=== PATIENT | male | born 1975 | race Caucasian/White ===

== ENCOUNTER 2018-06-08 07:19 | Inpatient (IN) | payer MEDICAID ==
[~2018-06-08] VITALS: Ht 180.3 cm; Wt 60.8 kg
[2018-06-08] MEDS ORDERED: BENA5TAB3 PO (07:23)
[2018-06-08] MEDS ORDERED: [UNRECOGNIZED DRUG - OTHER] (07:23)
[2018-06-08] MEDS ORDERED: INSULIN (07:23)
[2018-06-08] MEDS ORDERED: HYDR12.529 PO (07:23)
[2018-06-08] MEDS ORDERED: SODIUM CHLORIDE 0.9% 1,000 ML IV ONE (07:37)
[2018-06-08] MEDS ORDERED: FAMOTIDINE 20MG/2ML VIAL IV STA (07:37)
[2018-06-08] MEDS ORDERED: MORPHINE SULFATE 4 MG/ML CPJ (NOT FOR IM USE) IV STA (07:37)
[2018-06-08] MEDS ORDERED: ONDANSETRON HCL 4MG/2ML VIAL IV STA (07:37)
[2018-06-08 08:12] LABS: CHLORIDE 96 mEq/L (98-107)
[2018-06-08 08:14] LABS: INR 1.1; PROTHROMBIN TIME 11.5 sec (9.4-11.6)
[2018-06-08 08:15] LABS: HEMATOCRIT. 38.9 % (42.0-52.0); HEMOGLOBIN. 13.2 g/dL (14.0-18.0); MEAN CORPUSCULAR HEMOGLOBIN 28.7 pg (28.0-32.0); MEAN CORPUSCULAR VOLUME 84.9 fL (80.0-94.0); PLATELET 407 x1000/uL (130-400); RED BLOOD CELL COUNT 4.59 mill/uL (4.7-6.1); RED CELL DISTRIBUTION WIDTH 13.4 % (11.6-14.6)
[2018-06-08 09:16] LABS: PLATELET ESTIMATE SLIGHTLY INCREASED
[2018-06-08 10:20] LABS: CLARITY URINE CLEAR (CLEAR); COLOR URINE YELLOW (YELLOW); KETONES URINE TRACE (NEGATIVE); LEUKOCYTE ESTERASE URINE NEGATIVE (NEGATIVE); NITRITE URINE NEGATIVE (NEGATIVE); OCCULT BLOOD URINE NEGATIVE (NEGATIVE); PROTEIN URINE 1+ (NEGATIVE); SPECIFIC GRAVITY URINE 1.053 (1.005-1.030)
[2018-06-08] MEDS ORDERED: METRONIDAZOLE 500 MG PREMIX 100 ML IV ONE (10:30)
[2018-06-08] MEDS ORDERED: PIPERACILLIN/TAZ 3.375G PREMIX 50 ML IV ONE (10:30)
[2018-06-08] MEDS ORDERED: IOHEXOL-300 100 ML BOTTLE ONE (10:39)
[2018-06-08] MEDS ORDERED: NA PHOS,M-B/NA PHOS,DI-BA ENEMA 118ML PR PRN (11:45)
[2018-06-08] MEDS ORDERED: ACETAMINOPHEN 650MG/20.3ML UDC GT PRN (11:45)
[2018-06-08] MEDS ORDERED: GUAIFENESIN 200MG/10ML SUGAR FREE UDC PO PRN (11:45)
[2018-06-08] MEDS ORDERED: ACETAMINOPHEN 650MG SUPP PR PRN (11:45)
[2018-06-08] MEDS ORDERED: ACETAMINOPHEN 325MG TABLET PO PRN (11:45)
[2018-06-08] MEDS ORDERED: DEXTROSE 50% WATER 50ML SYRINGE IV PRN (12:00)
[2018-06-08] MEDS: INSULIN LISPRO 100 UNITS/ML SUBCUT SCH ×3 (13:20→20:45)
[2018-06-08 14:50] VITALS: BP 129/93
[2018-06-08] MEDS: MORPHINE SULFATE 4 MG/ML CPJ (NOT FOR IM USE) IV PRN ×2 (15:20→21:57)
[2018-06-08] MEDS: BLOOD SUGAR DIAGNOSTIC STRIP TEST SCH ×2 (15:32→20:45)
[2018-06-08] MEDS ORDERED: TIOT18CA3 INH (15:55)
[2018-06-08] MEDS ORDERED: INSU100I28 SQ (15:57)
[2018-06-08 16:00] VITALS: BP 133/94
[2018-06-08] MEDS ORDERED: PNEUMOCOCCAL 23-VAL P-SAC VAC 0.5 ML IM ONE (16:15)
[2018-06-08 17:54] LABS: CREATINE KINASE 27 IU/L (39-308)
[2018-06-08 17:55] LABS: CREATINE KINASE MB FRACTION < 0.5 ng/mL (0.5-3.6)
[2018-06-08] MEDS: BENAZEPRIL 5MG TABLET PO SCH (17:58)
[2018-06-08] MEDS: HYDROCHLOROTHIAZIDE 12.5MG CAPSULE PO SCH (17:58)
[2018-06-08 20:00] VITALS: BP 123/88
[2018-06-08] MEDS: ACETAMINOPHEN 325MG TABLET PO PRN (20:58)
[2018-06-08 23:15] LABS: CREATINE KINASE 25 IU/L (39-308)
[2018-06-08 23:16] LABS: CREATINE KINASE MB FRACTION < 0.5 ng/mL (0.5-3.6)
[2018-06-09] VITALS: BP 123/88
[2018-06-09 04:14] VITALS: BP 116/82
[2018-06-09] MEDS: ACETAMINOPHEN 325MG TABLET PO PRN ×2 (04:15→08:14)
[2018-06-09] MEDS: BLOOD SUGAR DIAGNOSTIC STRIP TEST SCH ×4 (06:41→20:52)
[2018-06-09] MEDS: INSULIN LISPRO 100 UNITS/ML SUBCUT SCH ×4 (06:41→20:52)
[2018-06-09 06:49] LABS: CHLORIDE 91 mEq/L (98-107)
[2018-06-09 06:54] LABS: PHOSPHORUS 2.4 mg/dL (2.5-4.9)
[2018-06-09 06:55] LABS: LDL CHOLESTEROL 45 mg/dL (5-100)
[2018-06-09 06:57] LABS: HDL CHOLESTEROL 11 mg/dL (40-59)
[2018-06-09 07:01] LABS: T4 FREE 1.27 ng/dL (0.76-1.46)
[2018-06-09 07:16] LABS: BASOPHILS % 0.2 % (0.0-2.0); HEMATOCRIT. 37.9 % (42.0-52.0); HEMOGLOBIN. 12.7 g/dL (14.0-18.0); LYMPHOCYTES % 6.6 % (20.0-50.0); MEAN CORPUSCULAR HEMOGLOBIN 28.8 pg (28.0-32.0); MEAN CORPUSCULAR VOLUME 85.8 fL (80.0-94.0); MEAN PLATELET VOLUME 8.5 fl (7.4-10.4); MONOCYTES % 9.4 % (2.0-8.0); NEUTROPHILS % 83.8 % (40.0-76.0); PLATELET 390 x1000/uL (130-400); RED BLOOD CELL COUNT 4.42 mill/uL (4.7-6.1); RED CELL DISTRIBUTION WIDTH 13.5 % (11.6-14.6)
[2018-06-09 08:00] VITALS: BP 131/90
[2018-06-09] MEDS: HYDROCHLOROTHIAZIDE 12.5MG CAPSULE PO SCH (08:14)
[2018-06-09] MEDS: BENAZEPRIL 5MG TABLET PO SCH (08:14)
[2018-06-09] MEDS: MORPHINE SULFATE 4 MG/ML CPJ (NOT FOR IM USE) IV PRN ×3 (09:40→23:30)
[2018-06-09 11:44] VITALS: BP 116/81
[2018-06-09] MEDS: SODIUM CHLORIDE 0.9% 1,000 ML IV SCH (14:28)
[2018-06-09] MEDS ORDERED: NON FORMULARY PATIENT HOME MED EA XX SCH (15:45)
[2018-06-09] MEDS: EFAVIRENZ 600MG TABLET PO SCH (18:00)
[2018-06-09] MEDS: EMTRICITABINE 200MG CAPSULE PO SCH (18:00)
[2018-06-09] MEDS: TENOFOVIR 300MG TABLET PO SCH (18:00)
[2018-06-09 20:00] VITALS: BP 119/85
[2018-06-09] MEDS: ONDANSETRON HCL 4MG/2ML VIAL IV PRN (20:51)
[2018-06-09] MEDS: LORAZEPAM 2MG/ML CPJ IV PRN (23:42)
[2018-06-10] VITALS (22 sets, daily range): BP systolic 104–151; BP diastolic 70–94
[2018-06-10] MEDS: METRONIDAZOLE 500 MG PREMIX 100 ML IV SCH ×3 (02:08→18:19)
[2018-06-10] MEDS: SODIUM CHLORIDE 0.9% 1,000 ML IV SCH ×2 (02:08→14:17)
[2018-06-10] MEDS: CEFEPIME 2,000 MG in DEXT 5% WATER 100 ML IV SCH ×2 (03:49→15:55)
[2018-06-10] MEDS: LORAZEPAM 2MG/ML CPJ IV PRN (04:02)
[2018-06-10] MEDS: ONDANSETRON HCL 4MG/2ML VIAL IV PRN ×3 (05:37→23:45)
[2018-06-10] MEDS: INSULIN LISPRO 100 UNITS/ML SUBCUT SCH ×7 (06:45→21:30)
[2018-06-10] MEDS: BLOOD SUGAR DIAGNOSTIC STRIP TEST SCH ×7 (06:45→23:55)
[2018-06-10 07:22] LABS: BASOPHILS % 0.1 % (0.0-2.0); HEMATOCRIT. 42.9 % (42.0-52.0); HEMOGLOBIN. 14.3 g/dL (14.0-18.0); LYMPHOCYTES % 7.6 % (20.0-50.0); MEAN CORPUSCULAR HEMOGLOBIN 28.6 pg (28.0-32.0); MEAN PLATELET VOLUME 8.5 fl (7.4-10.4); MONOCYTES % 8.5 % (2.0-8.0); NEUTROPHILS % 83.8 % (40.0-76.0); PLATELET 481 x1000/uL (130-400); RED BLOOD CELL COUNT 4.98 mill/uL (4.7-6.1); RED CELL DISTRIBUTION WIDTH 13.6 % (11.6-14.6)
[2018-06-10 07:39] LABS: CHLORIDE 82 mEq/L (98-107)
[2018-06-10 07:47] LABS: PHOSPHORUS 5.4 mg/dL (2.5-4.9)
[2018-06-10 09:08] LABS: ABSOLUTE LYMPHOCYTES 1.1 x10E3/uL (0.7-3.1); ABSOLUTE MONOCYTES 1.2 x10E3/uL (0.1-0.9); BASOPHILS 0 % (Not Estab.); HEMATOCRIT 36.9 % (37.5-51.0); HEMOGLOBIN 12.1 g/dL (13.0-17.7); IMMATURE GRANULOCYTES 0 % (Not Estab.); LYMPHOCYTES 7 % (Not Estab.); MEAN CORPUSCULAR HEMOGLOBIN 29.5 pg (26.6-33.0); MEAN CORPUSCULAR HGB CONC. 32.8 g/dL (31.5-35.7); MEAN CORPUSCULAR VOLUME 90 fL (79-97); MONOCYTES 7 % (Not Estab.); NEUTROPHILS 86 % (Not Estab.); PLATELETS 402 x10E3/uL (150-379); RED CELL DISTRIBUTION WIDTH 13.3 % (12.3-15.4); WBC 16.4 x10E3/uL (3.4-10.8)
[2018-06-10] MEDS: BENAZEPRIL 5MG TABLET PO SCH (10:07)
[2018-06-10] MEDS: HYDROCHLOROTHIAZIDE 12.5MG CAPSULE PO SCH (10:07)
[2018-06-10] MEDS: EMTRICITABINE 200MG CAPSULE PO SCH (11:05)
[2018-06-10] MEDS: TENOFOVIR 300MG TABLET PO SCH (11:05)
[2018-06-10] MEDS: EFAVIRENZ 600MG TABLET PO SCH (11:06)
[2018-06-10] MEDS ORDERED: BLOOD SUGAR DIAGNOSTIC STRIP TEST SCH (12:10)
[2018-06-10] MEDS ORDERED: DEXTROSE 50% WATER 50ML SYRINGE IV PRN ×2 (13:00→15:45)
[2018-06-10 13:09] LABS: % CD 3 POS. LYMPHOCYTES 76.7 % (57.5-86.2); % CD 4 POS. LYMPHOCYTES 23.6 % (30.8-58.5); % CD 8 POS. LYMPH 50.7 % (12.0-35.5); ABSOLUTE CD 3 844 /uL (622-2402); ABSOLUTE CD 4 HELPER 260 /uL (359-1519); ABSOLUTE CD 8 SUPPRESSOR 558 /uL (109-897); CD4/CD8 RATIO 0.47 (0.92-3.72)
[2018-06-10] MEDS: PANTOPRAZOLE SODIUM 40 MG/VIAL IV SCH ×2 (14:17→18:24)
[2018-06-10] MEDS ORDERED: INSULIN REGULAR (DRIP) 100 UNITS in SODIUM CHLORIDE 0.9% 100 ML IV SCH (15:15)
[2018-06-10] MEDS ORDERED: SODIUM CHLORIDE 0.45% 1,000 ML IV SCH (15:15)
[2018-06-10 16:15] LABS: CHLORIDE 81 mEq/L (98-107)
[2018-06-10 16:28] LABS: BG BASE EXCESS 9.2 mmol/L (-2.0-2.0); BG CARBOXYHEMOGLOBIN 1.2 % (0.5-1.5); BG DEOXYHEMOGLOBIN 3.8 % (0.0-5.0); BG FRACTION INSPIRED OXYGEN 21; BG METHEMOGLOBIN 0.4 % (0.0-1.5); BG OXYGEN SATURATION 96.1 % (92.0-98.5); BG OXYHEMOGLOBIN 94.6 % (94.0-97.0); BG PCO2 45.9 mmHg (35.0-45.0); BG PH 7.488 (7.350-7.450); BG PO2 82.7 mmHg (75.0-100.0); BG SAMPLE SITE RIGHT BRACHIAL; BG TOTAL HEMOGLOBIN 16.1 g/dL (12.0-18.0); BG VENT MODE ROOM AIR
[2018-06-10 18:24] LABS: CLARITY URINE CLEAR (CLEAR); COLOR URINE YELLOW (YELLOW); KETONES URINE NEGATIVE (NEGATIVE); LEUKOCYTE ESTERASE URINE NEGATIVE (NEGATIVE); NITRITE URINE NEGATIVE (NEGATIVE); OCCULT BLOOD URINE NEGATIVE (NEGATIVE); PROTEIN URINE NEGATIVE (NEGATIVE); SPECIFIC GRAVITY URINE 1.025 (1.005-1.030); UROBILINOGEN URINE 0.2 E.U./dL (0.2-1.0)
[2018-06-10 20:28] LABS: CHLORIDE 81 mEq/L (98-107)
[2018-06-10] MEDS: KETOROLAC 15MG/ML VIAL IV PRN ×2 (20:49→21:08)
[2018-06-10] MEDS: SODIUM CHL 0.9% + KCL 20MEQ/L 1,000 ML IV SCH (21:09)
[2018-06-10] MEDS: HYDROMORPHONE HCL/PF 2MG/ML CPJ IV PRN (21:09)
[2018-06-10] MEDS ORDERED: INSULIN GLARGINE UD 100 UNITS/ML SYR SUBCUT SCH (22:00)
[2018-06-10] MEDS: CHLORPROMAZINE HCL 25 MG TABLET PO SCH (22:04)
[2018-06-10] MEDS ORDERED: LORAZEPAM 2MG/ML CPJ IV PRN (23:45)
[2018-06-11] VITALS (36 sets, daily range): BP systolic 45–127; BP diastolic 14–89
[2018-06-11] MEDS ORDERED: DEXTROSE 50% WATER 50ML SYRINGE IV PRN
[2018-06-11] MEDS ORDERED: BLOOD SUGAR DIAGNOSTIC STRIP TEST SCH
[2018-06-11 00:17] LABS: CHLORIDE 84 mEq/L (98-107)
[2018-06-11 00:27] LABS: CREATINE KINASE 23 IU/L (39-308)
[2018-06-11 00:30] LABS: CREATINE KINASE MB FRACTION < 0.5 ng/mL (0.5-3.6)
[2018-06-11] MEDS: HYDROMORPHONE HCL/PF 2MG/ML CPJ IV PRN ×5 (00:44→21:11)
[2018-06-11] MEDS: METRONIDAZOLE 500 MG PREMIX 100 ML IV SCH ×3 (02:20→18:22)
[2018-06-11] MEDS: CEFEPIME 2,000 MG in DEXT 5% WATER 100 ML IV SCH ×2 (03:36→14:14)
[2018-06-11] MEDS: BLOOD SUGAR DIAGNOSTIC STRIP TEST SCH ×5 (04:37→20:41)
[2018-06-11] MEDS: SODIUM CHL 0.9% + KCL 20MEQ/L 1,000 ML IV SCH ×4 (05:32→23:18)
[2018-06-11 05:53] LABS: BASOPHILS % 0.1 % (0.0-2.0); HEMOGLOBIN. 11.9 g/dL (14.0-18.0); LYMPHOCYTES % 12.4 % (20.0-50.0); MEAN CORPUSCULAR HEMOGLOBIN 29.1 pg (28.0-32.0); MEAN PLATELET VOLUME 8.2 fl (7.4-10.4); MONOCYTES % 14.7 % (2.0-8.0); NEUTROPHILS % 70.8 % (40.0-76.0); PLATELET 423 x1000/uL (130-400); RED BLOOD CELL COUNT 4.07 mill/uL (4.7-6.1); RED CELL DISTRIBUTION WIDTH 13.4 % (11.6-14.6)
[2018-06-11] MEDS: CHLORPROMAZINE HCL 25 MG TABLET PO SCH ×3 (05:56→21:11)
[2018-06-11 06:25] LABS: AMMONIA 29 uMol/L (<32)
[2018-06-11 06:32] LABS: CHLORIDE 86 mEq/L (98-107)
[2018-06-11 06:46] LABS: PHOSPHORUS 2.9 mg/dL (2.5-4.9)
[2018-06-11 06:49] LABS: CREATINE KINASE 22 IU/L (39-308)
[2018-06-11 06:52] LABS: CREATINE KINASE MB FRACTION < 0.5 ng/mL (0.5-3.6)
[2018-06-11] MEDS ORDERED: INSULIN LISPRO 100 UNITS/ML SUBCUT SCH (07:00)
[2018-06-11 07:26] LABS: BG BASE EXCESS 7.4 mmol/L (-2.0-2.0); BG DEOXYHEMOGLOBIN 3.9 % (0.0-5.0); BG HCO3 ACT 31.3 mmol/L (22.0-26.0); BG METHEMOGLOBIN 0.4 % (0.0-1.5); BG OXYHEMOGLOBIN 94.7 % (94.0-97.0); BG PO2 78.2 mmHg (75.0-100.0); BG SAMPLE SITE RIGHT BRACHIAL; BG TOTAL HEMOGLOBIN 12.8 g/dL (12.0-18.0); BG VENT MODE ROOM AIR
[2018-06-11] MEDS: PANTOPRAZOLE SODIUM 40 MG/VIAL IV SCH ×2 (09:05→18:16)
[2018-06-11] MEDS: BENAZEPRIL 5MG TABLET PO SCH (09:05)
[2018-06-11] MEDS: EFAVIRENZ 600MG TABLET PO SCH (09:05)
[2018-06-11] MEDS: EMTRICITABINE 200MG CAPSULE PO SCH (09:05)
[2018-06-11] MEDS: HYDROCHLOROTHIAZIDE 12.5MG CAPSULE PO SCH (09:05)
[2018-06-11] MEDS: TENOFOVIR 300MG TABLET PO SCH (09:06)
[2018-06-11] MEDS ORDERED: CALCIUM CHLORIDE 1GM/10ML SYR IV ONE (09:46)
[2018-06-11] MEDS ORDERED: INSULIN GLARGINE UD 100 UNITS/ML SYR SUBCUT SCH (10:00)
[2018-06-11] MEDS: INSULIN GLARGINE UD 100 UNITS/ML SYR SUBCUT SCH ×2 (10:43→21:10)
[2018-06-11 11:42] LABS: CHLORIDE 92 mEq/L (98-107)
[2018-06-11] MEDS: INSULIN LISPRO 100 UNITS/ML SUBCUT SCH ×3 (12:00→20:41)
[2018-06-11] MEDS: ONDANSETRON HCL 4MG/2ML VIAL IV PRN (13:44)
[2018-06-11] MEDS ORDERED: METOCLOPRAMIDE HCL 10MG/2ML VIAL ONE (15:00)
[2018-06-11] MEDS ORDERED: METOCLOPRAMIDE HCL 10MG/2ML VIAL IV NR (15:15)
[2018-06-11] MEDS ORDERED: POTASSIUM CHLORIDE INJ 40 MEQ in DEXT 5% WATER 250 ML IV ONE (15:30)
[2018-06-11] MEDS ORDERED: LIDOCAINE HCL 2% JELLY 5ML MM NR (16:15)
[2018-06-11] MEDS: METOCLOPRAMIDE HCL 10MG/2ML VIAL IV SCH ×2 (18:15→23:19)
[2018-06-12] VITALS (14 sets, daily range): BP systolic 116–144; BP diastolic 75–93
[2018-06-12] MEDS: HYDROMORPHONE HCL/PF 2MG/ML CPJ IV PRN ×5 (01:45→20:18)
[2018-06-12] MEDS: CEFEPIME 2,000 MG in DEXT 5% WATER 100 ML IV SCH ×2 (02:07→14:00)
[2018-06-12] MEDS: METRONIDAZOLE 500 MG PREMIX 100 ML IV SCH ×3 (02:07→18:27)
[2018-06-12] MEDS: BLOOD SUGAR DIAGNOSTIC STRIP TEST SCH ×4 (05:54→21:08)
[2018-06-12] MEDS: SODIUM CHL 0.9% + KCL 20MEQ/L 1,000 ML IV SCH ×3 (05:57→20:18)
[2018-06-12] MEDS: METOCLOPRAMIDE HCL 10MG/2ML VIAL IV SCH (05:57)
[2018-06-12 06:17] LABS: BASOPHILS % 0.2 % (0.0-2.0); EOSINOPHILS % 2.3 % (0.0-5.0); HEMATOCRIT. 31.7 % (42.0-52.0); HEMOGLOBIN. 10.7 g/dL (14.0-18.0); LYMPHOCYTES % 8.4 % (20.0-50.0); MEAN CORPUSCULAR HEMOGLOBIN 28.9 pg (28.0-32.0); MEAN CORPUSCULAR VOLUME 85.8 fL (80.0-94.0); MEAN PLATELET VOLUME 8.1 fl (7.4-10.4); NEUTROPHILS % 79.1 % (40.0-76.0); PLATELET 440 x1000/uL (130-400); RED BLOOD CELL COUNT 3.69 mill/uL (4.7-6.1); RED CELL DISTRIBUTION WIDTH 13.3 % (11.6-14.6)
[2018-06-12 06:22] LABS: CHLORIDE 99 mEq/L (98-107)
[2018-06-12 06:23] LABS: AMMONIA 17 uMol/L (<32)
[2018-06-12 06:30] LABS: PHOSPHORUS 1.4 mg/dL (2.5-4.9)
[2018-06-12] MEDS: INSULIN LISPRO 100 UNITS/ML SUBCUT SCH ×4 (06:54→21:00)
[2018-06-12] MEDS: EMTRICITABINE 200MG CAPSULE PO SCH (07:59)
[2018-06-12] MEDS: EFAVIRENZ 600MG TABLET PO SCH (07:59)
[2018-06-12] MEDS: TENOFOVIR 300MG TABLET PO SCH (07:59)
[2018-06-12] MEDS: HYDROCHLOROTHIAZIDE 12.5MG CAPSULE PO SCH (07:59)
[2018-06-12] MEDS: BENAZEPRIL 5MG TABLET PO SCH (07:59)
[2018-06-12] MEDS: PANTOPRAZOLE SODIUM 40 MG/VIAL IV SCH ×2 (07:59→18:27)
[2018-06-12] MEDS ORDERED: MORPHINE SULFATE 4 MG/ML CPJ (NOT FOR IM USE) IV NR (09:00)
[2018-06-12] MEDS ORDERED: DIATR MEGLU/DIATRIZOATE SOLN 30ML ONE ×2 (09:16→09:24)
[2018-06-12] MEDS: INSULIN GLARGINE UD 100 UNITS/ML SYR SUBCUT SCH ×2 (10:00→21:08)
[2018-06-12] MEDS ORDERED: SODIUM PHOS,M-BASIC-D-BASIC 20 MM in DEXT 5% WATER 243.3333 ML IV NR (13:00)
[2018-06-12 13:06] LABS: *HIV-1 RNA BY PCR <20 copies/mL (.)
[2018-06-12 19:18] LABS: CHLORIDE 86 mEq/L (98-107)
[2018-06-12] MEDS: MAGNESIUM OXIDE 400MG TABLET PO SCH (20:13)
[2018-06-12 20:22] LABS: CHLORIDE 98 mEq/L (98-107)
[2018-06-13] VITALS: BP 123/83
[2018-06-13] MEDS: HYDROMORPHONE HCL/PF 2MG/ML CPJ IV PRN ×2 (00:27→09:03)
[2018-06-13 01:30] VITALS: BP 107/77
[2018-06-13] MEDS: SODIUM CHL 0.9% + KCL 20MEQ/L 1,000 ML IV SCH ×2 (01:35→08:59)
[2018-06-13] MEDS: METRONIDAZOLE 500 MG PREMIX 100 ML IV SCH ×2 (01:35→09:04)
[2018-06-13] MEDS: CEFEPIME 2,000 MG in DEXT 5% WATER 100 ML IV SCH (03:02)
[2018-06-13] MEDS: INSULIN LISPRO 100 UNITS/ML SUBCUT SCH ×2 (06:16→12:40)
[2018-06-13] MEDS: BLOOD SUGAR DIAGNOSTIC STRIP TEST SCH ×2 (06:16→12:53)
[2018-06-13 06:44] LABS: CHLORIDE 101 mEq/L (98-107)
[2018-06-13 06:49] LABS: AMMONIA 19 uMol/L (<32); PHOSPHORUS 1.5 mg/dL (2.5-4.9)
[2018-06-13 06:58] LABS: BASOPHILS % 0.1 % (0.0-2.0); EOSINOPHILS % 1.2 % (0.0-5.0); HEMATOCRIT. 31.5 % (42.0-52.0); HEMOGLOBIN. 10.5 g/dL (14.0-18.0); LYMPHOCYTES % 8.7 % (20.0-50.0); MEAN CORPUSCULAR HEMOGLOBIN 28.7 pg (28.0-32.0); MEAN CORPUSCULAR VOLUME 86.1 fL (80.0-94.0); MEAN PLATELET VOLUME 7.5 fl (7.4-10.4); MONOCYTES % 9.2 % (2.0-8.0); NEUTROPHILS % 80.8 % (40.0-76.0); PLATELET 414 x1000/uL (130-400); RED BLOOD CELL COUNT 3.66 mill/uL (4.7-6.1); RED CELL DISTRIBUTION WIDTH 13.8 % (11.6-14.6)
[2018-06-13 08:00] VITALS: BP 117/76
[2018-06-13] MEDS: PANTOPRAZOLE SODIUM 40 MG/VIAL IV SCH (08:59)
[2018-06-13] MEDS: TENOFOVIR 300MG TABLET PO SCH (09:00)
[2018-06-13] MEDS: EMTRICITABINE 200MG CAPSULE PO SCH (09:00)
[2018-06-13] MEDS: MAGNESIUM OXIDE 400MG TABLET PO SCH (09:00)
[2018-06-13] MEDS: EFAVIRENZ 600MG TABLET PO SCH (09:00)
[2018-06-13] MEDS: HYDROCHLOROTHIAZIDE 12.5MG CAPSULE PO SCH (09:00)
[2018-06-13] MEDS: BENAZEPRIL 5MG TABLET PO SCH (09:00)
[2018-06-13] MEDS: INSULIN GLARGINE UD 100 UNITS/ML SYR SUBCUT SCH (10:00)
[2018-06-13 12:00] VITALS: BP 99/71
== END 2018-06-13 12:50 | disposition left against medical advice (07) | DRG 720 ==
LOC: ER 07:19 → 8WST 10:22 → EDBEDREQSVC 10:24 → EDBEDREQ 10:24 → EDBEDREQTM 10:24 → ENRESERV 13:08 → MICUSO 06-10 15:12 → 8WST 06-13 01:04
PROVIDERS: ADMIT Internal Medicine; ATTEND Internal Medicine
PROC: 05H933Z Insertion of Infusion Device into Right Brachial Vein, Percutaneous Approach (ICD-10-PCS; principal; 2018-06-11)
PROC: B54MZZA Ultrasonography of Right Upper Extremity Veins, Guidance (ICD-10-PCS; 2018-06-11)
DX: A41.9 Sepsis, unspecified organism (principal); N17.0 Acute kidney failure with tubular necrosis; E11.00 Type 2 diabetes mellitus with hyperosmolarity without nonketotic hyperglycemic-hyperosmolar coma (NKHHC); E43 Unspecified severe protein-calorie malnutrition; K56.600 Partial intestinal obstruction, unspecified as to cause; E87.3 Alkalosis; E11.42 Type 2 diabetes mellitus with diabetic polyneuropathy; E87.1 Hypo-osmolality and hyponatremia; E87.8 Other disorders of electrolyte and fluid balance, not elsewhere classified; K56.7 Ileus, unspecified; K31.84 Gastroparesis; E11.65 Type 2 diabetes mellitus with hyperglycemia; F17.210 Nicotine dependence, cigarettes, uncomplicated; Z53.21 Procedure and treatment not carried out due to patient leaving prior to being seen by health care provider; L02.92 Furuncle, unspecified; E11.43 Type 2 diabetes mellitus with diabetic autonomic (poly)neuropathy; I10 Essential (primary) hypertension; J44.9 Chronic obstructive pulmonary disease, unspecified; K52.9 Noninfective gastroenteritis and colitis, unspecified; Z79.4 Long term (current) use of insulin; Z79.899 Other long term (current) drug therapy; Z68.1 Body mass index [BMI] 19.9 or less, adult
CPT/HCPCS: 36415; 36569; 36600; 70551; 71045; 74018; 74176; 74177; 76937; 80048; 80053; 80061; 81003; 82010; 82140; 82375; 82550; 82553; 82805; 82962; 83036; 83519; 83605; 83690; 83735; 83930; 83935; 84100; 84145; 84439; 84443; 84481; 84484; 84681; 85025; 85610; 86359; 86360; 87040; 87536; 90732; 93005; 96361; 96365; 96368; 96375; 99285; C1725; C1769; C9113; J0692; J1170; J1815; J1885; J2060; J2270; J2405; J2543; J2765; J3480; J3490; J7030; J7040; J7060; Q0161; Q9963; Q9967